=== PATIENT | female | born 1965 | race Two or more races ===

== ENCOUNTER 2019-04-06 09:38 | Outpatient (CLI) | payer OTHER | END 2019-04-06 23:59 | disposition home or self-care (01) | LOC: CFH 09:38 | PROVIDERS: ATTEND Physician Assistant Surgical | DX: Z97.8 Presence of other specified devices (principal) | CPT/HCPCS: 70450 ==

== ENCOUNTER 2019-10-01 18:09 | Inpatient (IN) | payer OTHER ==
[~2019-10-01] VITALS: Ht 154.9 cm; Wt 85.0 kg
--- NOTE | 2019-10-01 18:32 | NUR ---
PT BIB [facility], PT WITH +COVID TEST THIS TUEDAY. PRESENTS TODAY WITH INCREASING SOB/FATIGUE, PT REQUIRING SUPPLEMENTAL O2. PT SATING 87% ON RA PER [facility]. PT WITH LOW BP SUPERVISOR INSTANT POTATO PROCESSING 86/57. PT RECIEVED 350CC BOLUS. PT NOW WITH 95/63
--- NOTE | 2019-10-01 18:54 | NUR ---
report from BONI shahid
[2019-10-01] MEDS ORDERED: SODIUM CHLORIDE 0.9% 1,000ML IVBOLUS ONE ×3 (19:00→21:30)
[2019-10-01] MEDS ORDERED: CEFTRIAXONE PMX 1GM/50ML 50 ML IVPB ONE (19:00)
[2019-10-01] MEDS ORDERED: ACETAMINOPHEN 500 MG TABLET PO ONE (19:00)
[2019-10-01] MEDS ORDERED: ACETAMINOPHEN 500 MG TABLET ONE (19:14)
[2019-10-01] MEDS ORDERED: CEFTRIAXONE PMX 1GM/50ML 50 ML ONE (19:14)
[2019-10-01 19:18] LABS: BASOPHILS # (AUTO) 0.01 x10^3/uL (0-0.1); BASOPHILS % (AUTO) 0 % (0-1); EOSINOPHILS % (AUTO) 0 % (1-7); LYMPHOCYTES % (AUTO) 17 % (22-44); MD NO; MEAN CORPUSCULAR HEMOGLOBIN 25.7 pg (27.0-34.8); MEAN CORPUSCULAR HGB CONC 32.2 g/dL (32.4-35.8); MEAN PLATELET VOLUME 8.3 fL (7.4-10.4); MONOCYTES # (AUTO) 0.32 x10^3/uL (0.2-0.8); MONOCYTES % (AUTO) 7 % (2-9); NEUTROPHILS # (AUTO) 3.73 x10^3/uL (1.8-6.8); NEUTROPHILS % (AUTO) 77 % (42-75); PLATELET COUNT 227 x10^3/uL (130-400); RED BLOOD COUNT 5.19 x10^6/uL (3.82-5.3); RED CELL DISTRIBUTION WIDTH 15.9 % (9.6-15.2)
[2019-10-01] MEDS ORDERED: lisinopril PEG (19:31)
--- NOTE | 2019-10-01 20:10 | NUR ---
pt attached to all monitors. pt provided IV bolus NS to treat hypotension and pt placed on 4 L NC for hypoxia. trading analyst forgot to replaced O2 after chest x ray and pt O2 sats found at 83% on room air. pt condition discussed with Dr. Carpio. Pt resting on gurney with no requests at this time. Bed rails up x 2 and call light on lap. POC discussed with pt as well. no questions.
[2019-10-01] MEDS ORDERED: lisinopril PO (20:15)
[2019-10-01 20:40] LABS: ALBUMIN 2.6 g/dL (3.4-5.0); ANION GAP 6 mmol/L (5-15); CHLORIDE 104 mmol/L (98-107)
[2019-10-01 20:41] LABS: CREATININE 0.78 mg/dL (0.55-1.02)
--- NOTE | 2019-10-01 21:43 | NUR ---
PT PERSISTANTLY HYPOTENSIVE. DR SUÁREZ NOTIFIED AND ADDITIONAL NS BOLUS INITIATED.
--- NOTE | 2019-10-01 22:24 | NUR ---
PT STILL HYPOTENSIVE BUT DENIES ANY LIGHTHEADEDNESS/DIZZINESS. PT AMBULATORY TO [facility] FOR URINATION INDEPENDENTLY.
[2019-10-01] MEDS ORDERED: NOREPINEPHRINE 8 MG in SODIUM CHLORIDE 0.9% 242 ML IV PRN ×2 (22:48→23:21)
[2019-10-01] MEDS ORDERED: ENOXAPARIN 40 MG/0.4 ML SQ SCH (23:30)
[2019-10-01] MEDS ORDERED: ONDANSETRON 2MG/ML, 2ML IVPush PRN (23:30)
--- NOTE | 2019-10-01 23:40 | NUR ---
CONSENT FOR CENTRAL LINE SIGNED BY DR AND PT AND PLACED WITH PAPERWORK TO BE SCANNED INTO MEDICAL RECORD. PT EDUCATED ON CENTRAL LINE PROCEDURE AND REASON FOR PLACEMENT. PT WITH NO QUESTIONS. DR SUÁREZ IN TO PLACE CENTRAL LINE WITH ME DECORATING AND ASSEMBLY SUPERVISOR. PT TOLERATED WELL AND CHECKLIST COMPLETED.
[2019-10-02] MEDS ORDERED: ENOXAPARIN 40 MG/0.4 ML ONE (00:03)
[2019-10-02 00:05] LABS: FREE T4 (FREE THYROXINE) 1.15 ng/dL (0.76-1.46)
[2019-10-02] MEDS: AZITHROMYCIN 500 MG in SODIUM CHLORIDE 0.9% 250 ML IV SCH ×2 (00:06→23:28)
[2019-10-02 00:53] LABS: D-DIMER (DIC) 3.11 ug/mlFEU (0.00-0.52); PROTIME 9.4 Seconds (9.6-11.5)
[2019-10-02 00:54] LABS: C-REACTIVE PROTEIN, QUANT 3.7 mg/dL (0.02-0.49)
--- NOTE | 2019-10-02 01:03 | NUR ---
CENTRAL LINE IN CORRECT POSITION PER XRAY. LEVO STARTED TO TREAT HYPOTENSION.
--- NOTE | 2019-10-02 01:31 | NUR ---
REPORT TO BONI HA
[2019-10-02 02:27] VITALS: BP 119/77
[2019-10-02 04:00] VITALS: BP 99/57
[2019-10-02 05:04] LABS: BASOPHILS # (AUTO) 0.02 x10^3/uL (0-0.1); BASOPHILS % (AUTO) 0 % (0-1); EOSINOPHILS % (AUTO) 0 % (1-7); LYMPHOCYTES # (AUTO) 1.15 x10^3/uL (1-3.4); LYMPHOCYTES % (AUTO) 20 % (22-44); MD NO; MEAN CORPUSCULAR HEMOGLOBIN 25.9 pg (27.0-34.8); MEAN PLATELET VOLUME 7.7 fL (7.4-10.4); MONOCYTES # (AUTO) 0.33 x10^3/uL (0.2-0.8); MONOCYTES % (AUTO) 6 % (2-9); NEUTROPHILS # (AUTO) 4.39 x10^3/uL (1.8-6.8); NEUTROPHILS % (AUTO) 75 % (42-75); PLATELET COUNT 216 x10^3/uL (130-400); RED BLOOD COUNT 4.75 x10^6/uL (3.82-5.3); RED CELL DISTRIBUTION WIDTH 15.9 % (9.6-15.2)
[2019-10-02 05:05] LABS: ANION GAP 6 mmol/L (5-15); CALCIUM 7.7 mg/dL (8.5-10.1); CHLORIDE 111 mmol/L (98-107); CREATININE 0.67 mg/dL (0.55-1.02)
[2019-10-02] MEDS ORDERED: REMDESIVIR 200 MG in SODIUM CHLORIDE 0.9% 250 ML IVPB ONE (08:00)
[2019-10-02] MEDS: ZINC SULFATE 220 MG CAPSULE PO SCH (08:24)
[2019-10-02] MEDS: methylPREDNISolone SOD SUCC 40 MG/ML IV SCH ×2 (08:24→19:54)
[2019-10-02] MEDS: ENOXAPARIN 80 MG/0.8 ML SQ SCH ×2 (08:25→19:54)
[2019-10-02] MEDS: POTASSIUM CHLORIDE 20 MEQ TAB.ER.PRT PO SCH ×2 (08:25→17:09)
[2019-10-02] MEDS: CHOLECALCIFEROL 5,000u TAB PO SCH (08:25)
[2019-10-02] MEDS ORDERED: FUROSEMIDE 20 MG/2 ML IV ONE (11:00)
[2019-10-02] MEDS: ASCORBATE SODIUM 3,000 MG in SODIUM CHLORIDE 0.9% 250 ML IVPB SCH ×3 (12:31→23:28)
[2019-10-02] MEDS ORDERED: FUROSEMIDE 20 MG/2 ML IV SCH (17:00)
[2019-10-02] MEDS: CEFTRIAXONE PMX 1GM/50ML 50 ML IV SCH (19:54)
[2019-10-02] MEDS ORDERED: VASOPRESSIN 20 UNIT in SODIUM CHLORIDE 0.9% 99 ML IV PRN (21:00)
[2019-10-03 05:02] LABS: BASOPHILS # (AUTO) 0.01 x10^3/uL (0-0.1); BASOPHILS % (AUTO) 0 % (0-1); EOSINOPHILS # (AUTO) 0.01 x10^3/uL (0-0.4); EOSINOPHILS % (AUTO) 0 % (1-7); LYMPHOCYTES # (AUTO) 0.86 x10^3/uL (1-3.4); LYMPHOCYTES % (AUTO) 22 % (22-44); MD NO; MEAN CORPUSCULAR HGB CONC 32.3 g/dL (32.4-35.8); MEAN PLATELET VOLUME 8.3 fL (7.4-10.4); MONOCYTES # (AUTO) 0.28 x10^3/uL (0.2-0.8); MONOCYTES % (AUTO) 7 % (2-9); NEUTROPHILS # (AUTO) 2.84 x10^3/uL (1.8-6.8); NEUTROPHILS % (AUTO) 71 % (42-75); PLATELET COUNT 245 x10^3/uL (130-400); RED BLOOD COUNT 4.67 x10^6/uL (3.82-5.3); RED CELL DISTRIBUTION WIDTH 16.3 % (9.6-15.2)
[2019-10-03 05:05] LABS: INTERNATIONAL NORMALIZED RATIO 0.97 (0.93-1.1); PROTHROMBIN TIME 10.3 Seconds (9.6-11.5)
[2019-10-03 05:09] LABS: ALANINE AMINOTRANSFERASE 85 U/L (12-78); ALBUMIN 2.1 g/dL (3.4-5.0); ANION GAP 8 mmol/L (5-15); CALCIUM 7.9 mg/dL (8.5-10.1); CHLORIDE 115 mmol/L (98-107)
[2019-10-03] MEDS: ASCORBATE SODIUM 3,000 MG in SODIUM CHLORIDE 0.9% 250 ML IVPB SCH ×3 (05:10→17:04)
[2019-10-03 05:12] LABS: ALKALINE PHOSPHATASE 165 U/L (45-117); BILIRUBIN,TOTAL 0.3 mg/dL (0.2-1.0); CREATININE 0.45 mg/dL (0.55-1.02); TOTAL PROTEIN 5.9 g/dL (6.4-8.2)
[2019-10-03] MEDS: ZINC SULFATE 220 MG CAPSULE PO SCH (09:26)
[2019-10-03] MEDS: CHOLECALCIFEROL 5,000u TAB PO SCH (09:26)
[2019-10-03] MEDS: POTASSIUM CHLORIDE 20 MEQ TAB.ER.PRT PO SCH ×2 (09:26→16:02)
[2019-10-03] MEDS: ACETAMINOPHEN 325 MG TABLET PO PRN (09:26)
[2019-10-03] MEDS: methylPREDNISolone SOD SUCC 40 MG/ML IV SCH (09:27)
[2019-10-03] MEDS: REMDESIVIR 100 MG in SODIUM CHLORIDE 0.9% 250 ML IVPB SCH (09:27)
[2019-10-03] MEDS: ENOXAPARIN 80 MG/0.8 ML SQ SCH ×2 (09:27→20:04)
[2019-10-03] MEDS: CEFTRIAXONE PMX 1GM/50ML 50 ML IV SCH (20:04)
[2019-10-03 20:15] VITALS: BP 101/59
[2019-10-03] MEDS: AZITHROMYCIN 500 MG in SODIUM CHLORIDE 0.9% 250 ML IV SCH (23:07)
[2019-10-04] MEDS: ASCORBATE SODIUM 3,000 MG in SODIUM CHLORIDE 0.9% 250 ML IVPB SCH ×5 (01:04→22:22)
[2019-10-04 01:15] VITALS: BP 126/81
[2019-10-04 07:23] LABS: ALANINE AMINOTRANSFERASE 75 U/L (12-78); ALBUMIN 2.2 g/dL (3.4-5.0); ANION GAP 5 mmol/L (5-15); CALCIUM 8.1 mg/dL (8.5-10.1); CHLORIDE 117 mmol/L (98-107); CREATININE 0.58 mg/dL (0.55-1.02)
[2019-10-04 07:25] LABS: ALKALINE PHOSPHATASE 138 U/L (45-117); BILIRUBIN,TOTAL 0.2 mg/dL (0.2-1.0)
[2019-10-04 08:00] VITALS: BP 120/78
[2019-10-04] MEDS: CHOLECALCIFEROL 5,000u TAB PO SCH (08:40)
[2019-10-04] MEDS: methylPREDNISolone SOD SUCC 40 MG/ML IV SCH (08:40)
[2019-10-04] MEDS: ACETAMINOPHEN 325 MG TABLET PO PRN ×2 (08:40→20:33)
[2019-10-04] MEDS: POTASSIUM CHLORIDE 20 MEQ TAB.ER.PRT PO SCH (08:40)
[2019-10-04] MEDS: ENOXAPARIN 80 MG/0.8 ML SQ SCH ×2 (08:41→20:22)
[2019-10-04] MEDS: ZINC SULFATE 220 MG CAPSULE PO SCH (08:41)
[2019-10-04] MEDS: REMDESIVIR 100 MG in SODIUM CHLORIDE 0.9% 250 ML IVPB SCH (10:20)
[2019-10-04 14:44] VITALS: BP 88/70
[2019-10-04 20:00] VITALS: BP 144/90
[2019-10-04] MEDS: CEFTRIAXONE PMX 1GM/50ML 50 ML IV SCH (20:21)
[2019-10-05] MEDS: AZITHROMYCIN 500 MG in SODIUM CHLORIDE 0.9% 250 ML IV SCH (01:18)
[2019-10-05 02:00] VITALS: BP 129/76
[2019-10-05 05:50] LABS: PROTHROMBIN TIME 10.6 Seconds (9.6-11.5)
[2019-10-05 05:54] LABS: ALBUMIN 2.2 g/dL (3.4-5.0); ANION GAP 6 mmol/L (5-15); CALCIUM 8.4 mg/dL (8.5-10.1); CHLORIDE 117 mmol/L (98-107)
[2019-10-05 05:59] LABS: ALANINE AMINOTRANSFERASE 129 U/L (12-78); ALKALINE PHOSPHATASE 139 U/L (45-117); BILIRUBIN,TOTAL 0.3 mg/dL (0.2-1.0); CREATININE 0.48 mg/dL (0.55-1.02); TOTAL PROTEIN 5.9 g/dL (6.4-8.2)
[2019-10-05] MEDS: ASCORBATE SODIUM 3,000 MG in SODIUM CHLORIDE 0.9% 250 ML IVPB SCH ×2 (06:10→12:00)
[2019-10-05 07:57] VITALS: BP 146/85
[2019-10-05] MEDS: methylPREDNISolone SOD SUCC 40 MG/ML IV SCH (07:57)
[2019-10-05] MEDS: CHOLECALCIFEROL 5,000u TAB PO SCH (07:57)
[2019-10-05] MEDS: ENOXAPARIN 80 MG/0.8 ML SQ SCH (07:57)
[2019-10-05] MEDS: ZINC SULFATE 220 MG CAPSULE PO SCH (07:57)
[2019-10-05] MEDS: REMDESIVIR 100 MG in SODIUM CHLORIDE 0.9% 250 ML IVPB SCH (10:15)
[2019-10-05] MEDS ORDERED: LEVO750T26 PO (13:38)
[2019-10-05 13:55] VITALS: BP 127/72
== END 2019-10-05 15:15 | disposition home or self-care (01) | DRG 871 ==
LOC: ED 20:51 → EDIP 23:10 → ICU 10-02 01:48
PROVIDERS: ADMIT Internal Medicine; ATTEND Internal Medicine
PROC: 02HV33Z Insertion of Infusion Device into Superior Vena Cava, Percutaneous Approach (ICD-10-PCS; principal; 2019-10-02)
DX: A41.89 Other specified sepsis (principal); U07.1 COVID-19; J12.89 Other viral pneumonia; R65.21 Severe sepsis with septic shock; J81.0 Acute pulmonary edema; J96.01 Acute respiratory failure with hypoxia; I10 Essential (primary) hypertension; G89.29 Other chronic pain; M51.36 Other intervertebral disc degeneration, lumbar region
CPT/HCPCS: 36415; 70450; 71045; 72040; 80048; 80053; 82040; 82728; 83036; 83605; 83615; 84145; 84439; 84443; 85025; 85049; 85379; 85384; 85610; 85730; 86140; 87040; 87081; 93005; 96365; 99291; G0378; J0456; J0696; J1650; J2920; J7030; J7050

== ENCOUNTER 2020-08-30 15:38 | Outpatient (CLI) | payer OTHER ==
[~2020-08-30 15:38] MED LIST: LEVO750T26 PO; lisinopril PEG; lisinopril PO
== END 2020-08-30 23:59 | disposition home or self-care (01) ==
LOC: CFH 15:38
PROVIDERS: ATTEND Nurse Practitioner Family
DX: Z02.9 Encounter for administrative examinations, unspecified (principal)